=== PATIENT | female | born 1955 | race Caucasian/White ===

== ENCOUNTER → 2017-02-22 | Outpatient (CLI) | payer BC ==
[~2017-02-22] MED LIST: ASPIRIN EC81 MG PO; ELAVIL-DPS10 MG PO; LEVOTHYROXINE100 MCG PO; MOBIC15 MG PO; NEURONTIN DPS100 MG PO; PRILOSEC DPS20 MG PO; TYLENOL DPS325 MG PO; ULTRAM DPS50 MG PO; VITAMIN B COMP1 EACH PO; VITAMIN D400 UNIT PO; VITAMIN E400 UNIT PO; ZANAFLEX4 MG PO
== END | disposition home or self-care (01) ==
LOC: RAD.S 12:53
DX: E04.2 Nontoxic multinodular goiter (principal)